=== PATIENT | female | born 1985 | race Caucasian/White ===

== ENCOUNTER → 2020-08-24 | Outpatient (CLI) | payer OTHER ==
[~2020-08-24] MED LIST: E-Z-GAS II EFFERVESCENT PACKET (SODIUM BICARB./CITRIC ACID/SIMETHICONE) As Ordered ONE; E-Z-HD 98% w/w 340GM SUSP BTL As Ordered ONE; E-Z-PAQUE 96% w/w SUSP 176GM BTL As Ordered ONE
--- NOTE | 2020-08-24 16:30 | REP ---
INDICATION: DYSPHAGIA. COMPARISON: None. TECHNIQUE: The procedure was performed under the direct supervision of Dr. Potts. The images were reviewed with Dr. Potts. Liquid barium was given in the erect position as well as liquid barium in the prone oblique position in order to perform a single contrast upper GI examination. A combination of fluoroscopy, spot films and last image hold technology was utilized. 0.6 minutes of fluoro time was utilized for this procedure. 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 The intestinal gas pattern is non-specific. There are surgical sutures noted in the epigastric region and left abdomen consistent with the patient's history of gastric bypass. The oral and pharyngeal stages of deglutition are unremarkable. Esophageal transport is prompt and efficient and there is no esophagitis, stricture or mucosal ring. There is a small sliding-type hiatal hernia. Gastroesophageal reflux is not demonstrated on this examination. There are postsurgical changes of the stomach consistent with the patient's history of gastric bypass. Contrast passes freely through the stomach pouch and anastomosis without delay. There is no evidence of gastritis neoplasm or ulcer disease. The visualized portion of the proximal small bowel appears normal in course and caliber. IMPRESSION: There are postsurgical changes of the stomach consistent with the patient's history of gastric bypass. There is a small sliding-type hiatal hernia. Otherwise, unremarkable single contrast upper GI examination.. <Electronically signed by Dieter Grant > 08/24/20 1552 <Electronically signed by Michael Potts > 08/24/20 [id number]
== END ==
LOC: M RAD 07:23
PROVIDERS: ATTEND Surgery
DX: R13.10 Dysphagia, unspecified (principal); Z98.84 Bariatric surgery status; K44.9 Diaphragmatic hernia without obstruction or gangrene

== ENCOUNTER → 2024-09-29 | Outpatient (CLI) | payer OTHER | LOC: M RAD 15:05 | PROVIDERS: ATTEND Physician Assistant Medical | DX: G44.59 Other complicated headache syndrome (principal) ==

== ENCOUNTER → 2025-01-12 | Outpatient (CLI) | payer OTHER | LOC: M EKG 11:10 | PROVIDERS: ATTEND Physician Assistant | DX: R00.2 Palpitations (principal) ==